=== PATIENT | male | born 1985 | race Caucasian/White ===

== ENCOUNTER 2022-07-04 20:11 | Emergency (ER) | payer BC ==
[~2022-07-04] VITALS: Ht 185.4 cm; Wt 88.6 kg
[2022-07-04 20:48] LABS: BASO % 0.5 % (0.0-1.0); EOS # 0.1 10^3/uL (0.0-0.5); EOS % 2.1 % (0.0-3.0); HEMATOCRIT 43.5 % (42.0-52.0); HEMOGLOBIN 14.6 g/dl (13.5-17.5); LYMPH # 2.9 10^3/uL (1.5-5.0); LYMPH % 43.6 % (24.0-44.0); MEAN CORPUSCULAR HEMOGLOBIN 30.2 pg (27.0-33.0); MEAN CORPUSCULAR HGB CONC 33.6 g/dl (32.0-36.5); MEAN CORPUSCULAR VOLUME 90.1 fl (80.0-96.0); MONO # 0.6 10^3/uL (0.0-0.8); MONO % 9.2 % (2.0-8.0); NEUTROPHILS # 2.9 10^3/uL (1.5-8.5); NEUTROPHILS % 44.4 % (36.0-66.0); PLATELET COUNT, AUTOMATED 282 10^3/uL (150-450); RED BLOOD COUNT 4.83 10^6/uL (4.30-6.10); WHITE BLOOD COUNT 6.5 10^3/uL (4.0-10.0)
[2022-07-04 21:37] LABS: CK-MB VALUE MASS 2.6 NG/ML (<3.6); MB/CK RELATIVE INDEX 0.62 (< OR =4)
[2022-07-04 22:02] LABS: BLOOD UREA NITROGEN 20 MG/DL (7-18); CALCIUM LEVEL 9.4 MG/DL (8.5-10.1); CARBON DIOXIDE LEVEL 31 MEQ/L (21-32); CHLORIDE LEVEL 106 MEQ/L (98-107); CREATININE FOR GFR 1.06 MG/DL (0.70-1.30); FREE T4 0.81 NG/DL (0.76-1.46); GLOMERULAR FILTRATION RATE > 60.0 (>60); GLUCOSE, FASTING 101 MG/DL (70-100); POTASSIUM SERUM 3.9 MEQ/L (3.5-5.1); SODIUM LEVEL 141 MEQ/L (136-145)
[2022-07-05] MEDS ORDERED: LISI10TA22 PO (01:41)
[2022-07-05 01:51] VITALS: BP 163/98
[2022-07-05 01:52] LABS: CK-MB VALUE MASS 1.9 NG/ML (<3.6); MB/CK RELATIVE INDEX 0.62 (< OR =4)
[2022-07-05 02:35] VITALS: BP 157/86
== END 2022-07-05 02:43 | disposition home or self-care (01) ==
LOC: M ED 20:11
DX: I49.3 Ventricular premature depolarization (principal); I10 Essential (primary) hypertension

== ENCOUNTER → 2022-12-27 | Outpatient (REF) | payer BC ==
[~2022-12-27] MED LIST: LISI10TA22 PO
== END ==
LOC: M SMT 12:51
PROVIDERS: ATTEND Urology
DX: Z30.2 Encounter for sterilization (principal)

== ENCOUNTER → 2023-03-19 | Outpatient (REF) | payer BC ==
[2023-03-19 15:11] LABS: SEMEN APPEARANCE OPAQUE (OPAQUE)
[2023-03-19 15:16] LABS: SEMEN VISCOSITY LIQUID (LIQUID); SEMEN pH 8.5 (7.0-8.0); WBC CONCENTRATION <=1 M/ml (<=1 M/ml)
== END ==
LOC: M SMT 14:28
PROVIDERS: ATTEND Urology
DX: Z30.2 Encounter for sterilization (principal)